=== PATIENT | female | born 1990 | race Caucasian/White ===

== ENCOUNTER 2020-02-28 04:54 | Inpatient (IN) ==
[2020-02-28] MEDS ORDERED: ONDANSETRON 4 MG/2 ML VIAL IV PRN ×2 (05:04→09:47)
[2020-02-28] MEDS ORDERED: BUTORPHANOL 2 MG/ML VIAL IV PRN (05:04)
[2020-02-28] MEDS ORDERED: OXYTOCIN/LR 20 UNIT/1,000 ML BAG IV SCH (05:30)
[2020-02-28] MEDS ORDERED: LACTATED RINGERS 1,000 ML IV SCH (05:30)
[2020-02-28 05:45] LABS: Basophils % 0.2 % (0.0-0.8); Eosinophils # 0.1 10*3/uL (0.0-0.87); Hematocrit 36.5 VOL% (35.7-47.0); Hemoglobin 12.4 GM/DL (12.0-16.0); Immature Granulocytes % 0.5 %; Immature Granulocytes Absolute 0.05 #; Lymphocytes # 2.9 10*3/uL (1.4-4.0); Lymphocytes % 26.3 % (21.3-54.2); Mean Platelet Volume 11.3 FL (9.6-12.0); Monocytes % 4.9 % (1.7-12.7); Neutrophils % 67.1 % (38.7-73.9); Platelet Count 196 T/CUMM (130-400); Red Blood Count 4.01 MC/CUMM (3.8-5.5); Red Cell Distribution Width 13.2 % (9.3-17.3); White Blood Count 10.9 T/CUMM (4-12)
[2020-02-28 06:20] LABS: Alanine Aminotransferase 16 U/L (13-56); Alkaline Phosphatase 148 U/L (45-117); Aspartate Amino Transferase 15 U/L (0-37); Bilirubin,Total < 0.39 MG/DL (0.2-1.0); Blood Urea Nitrogen 6 MG/DL (7-18); Calcium 8.9 MG/DL (8.5-10.1); Estimated Glom Filtration Rate 142 ML/MIN; Glucose 83 MG/DL (74-106); Osmolality,Calculated 271.7 MOS/KG (273-304)
[2020-02-28 07:24] LABS: Apearance,Urine CLOUDY (Clear); Bacteria,Urine Few /HPF (Few); Bilirubin,Urine Negative (Negative); Blood, Urine Negative (Negative); Glucose,Urine (UA) Negative (Negative); Ketones,Urine Negative (Negative); Mucus,Urine Few /LPF (Occasional); Nitrite,Urine Negative (Negative); Protein,Urine Negative; RBC,Urine 6 /HPF (0-4); Squamous Epithelial Cell,Urine Few /HPF (0-10); Urine Specific Gravity 1.021 (1.001-1.035); Urine Urobilinogen < 2.0 EU/DL (0.2-1.0); WBC,Urine 14 /HPF (0-6)
[2020-02-28 07:25] LABS: Urine Color Dark yellow (Yellow)
[2020-02-28] MEDS: MEPERIDINE 50 MG/1 ML VIAL IV PRN ×2 (09:07→10:01)
[2020-02-28] MEDS ORDERED: ePHEDrine 50 MG/ML AMP IV PRN (09:20)
[2020-02-28] MEDS ORDERED: CITRIC ACID/SODIUM CITRATE 30 ML UDCUP PO ONE (09:20)
[2020-02-28] MEDS ORDERED: NALOXONE 0.4 MG/ML VIAL IV PRN (09:20)
[2020-02-28] MEDS ORDERED: diphenhydrAMINE 50 MG/1 ML VIAL IV PRN ×2 (09:20)
[2020-02-28] MEDS ORDERED: FAMOTIDINE 20 MG/2 ML VIAL IV ONE (09:20)
[2020-02-28] MEDS ORDERED: ONDANSETRON 4 MG/2 ML VIAL IV ONE (09:20)
[2020-02-28] MEDS ORDERED: hydrOXYzine HCL 25 MG/1 ML VIAL IM PRN (09:20)
[2020-02-28] MEDS ORDERED: PROMETHAZINE 25 MG/1 ML VIAL IM ONE (09:20)
[2020-02-28] MEDS ORDERED: fentaNYL 2 MCG/ROPIV 0.2% EPID 100 ML EPIDURAL SCH (09:30)
[2020-02-28] MEDS ORDERED: BUPIVACAINE SPINAL 0.75% 2 ML AMP SPINAL ONE (09:31)
[2020-02-28] MEDS ORDERED: LIDOCAINE 1% 50 ML VIAL ONE (09:32)
[2020-02-28] MEDS ORDERED: miSOPROStoL 200 MCG TABLET ONE (09:33)
[2020-02-28] MEDS ORDERED: METHYLERGONOVINE 0.2 MG/1 ML AMP ONE (09:33)
[2020-02-28] MEDS ORDERED: CARBOPROST TROMETHAMINE 250 MCG/ML AMP IM ONE (09:33)
[2020-02-28] MEDS ORDERED: oxyCODONE/ACETAMINOPHEN 5-325 MG TABLET PO PRN (09:47)
[2020-02-28] MEDS ORDERED: HYDROCORTISONE 2.5% RECTAL CREAM 30 GM TUBE TOP PRN (09:47)
[2020-02-28] MEDS ORDERED: BISACODYL 10 MG SUPP RECTAL PRN (09:47)
[2020-02-28] MEDS ORDERED: MEASLES/MUMPS/RUBELLA VACCINE 0.5 ML VIAL SUBCUT ONE (09:47)
[2020-02-28] MEDS ORDERED: OXYTOCIN/LR 20 UNIT/1,000 ML BAG IV ONE (09:47)
[2020-02-28] MEDS ORDERED: WITCH HAZEL PADS 100/JAR TOP PRN (09:47)
[2020-02-28] MEDS ORDERED: ACETAMINOPHEN 325 MG TABLET PO PRN (09:47)
[2020-02-28] MEDS ORDERED: BENZOCAINE 20%/MENTHOL 0.5% SPRAY 56 GM CAN TOP PRN (09:47)
[2020-02-28] MEDS ORDERED: DIPH/TET/ACEL PERT BOOSTER VACCINE 0.5 ML VIAL IM ONE (09:47)
[2020-02-28] MEDS ORDERED: RHO(D) IMMUNE GLOBULIN 300 MCG SYRINGE IM ONE (09:47)
[2020-02-28] MEDS ORDERED: LANOLIN 50% CREAM 0.3 OZ TUBE TOP PRN (09:47)
[2020-02-28] MEDS ORDERED: MEPERIDINE 50 MG/1 ML VIAL IV ONE (09:59)
[2020-02-28] MEDS: oxyCODONE/ACETAMINOPHEN 5-325 MG TABLET PO PRN (13:37)
[2020-02-28] MEDS: IBUPROFEN 800 MG TABLET PO PRN (18:21)
[2020-02-28] MEDS: DOCUSATE SODIUM 100 MG CAPSULE PO SCH (21:11)
[2020-02-29 06:00] LABS: Basophils % 0.3 % (0.0-0.8); Eosinophils # 0.3 10*3/uL (0.0-0.87); Eosinophils % 1.9 % (0.00-10.9); Hematocrit 33.8 VOL% (35.7-47.0); Hemoglobin 11.4 GM/DL (12.0-16.0); Immature Granulocytes % 0.4 %; Immature Granulocytes Absolute 0.05 #; Lymphocytes # 3.6 10*3/uL (1.4-4.0); Lymphocytes % 27.4 % (21.3-54.2); Mean Corpuscular HGB Conc 33.7 GM/DL (32-36); Mean Corpuscular Volume 91.6 FL (87-102); Mean Platelet Volume 11.1 FL (9.6-12.0); Monocytes % 5.6 % (1.7-12.7); Neutrophils % 64.4 % (38.7-73.9); Platelet Count 170 T/CUMM (130-400); Red Blood Count 3.69 MC/CUMM (3.8-5.5); Red Cell Distribution Width 13.3 % (9.3-17.3)
[2020-02-29] MEDS: IBUPROFEN 800 MG TABLET PO PRN ×2 (06:09→18:35)
[2020-02-29] MEDS ORDERED: HydrOXYzine PAMOATE 25 MG CAPSULE PO PRN (07:16)
[2020-02-29] MEDS: DOCUSATE SODIUM 100 MG CAPSULE PO SCH ×2 (08:58→20:27)
[2020-02-29] MEDS: oxyCODONE/ACETAMINOPHEN 5-325 MG TABLET PO PRN (18:35)
[2020-03-01 07:29] VITALS: BP 98/64
[2020-03-01] MEDS: DOCUSATE SODIUM 100 MG CAPSULE PO SCH (08:33)
== END 2020-03-01 12:30 | disposition home or self-care (01) | DRG 560 ==
LOC: N.LD 04:54 → N.OB 11:13
PROVIDERS: ADMIT Specialist; ATTEND Specialist